=== PATIENT | male | born 1955 | race African-American/Black ===

== ENCOUNTER 2025-05-20 10:51 | Outpatient (CLI) | payer MEDICARE ==
[2025-05-20 12:15] LABS: #Basophils 0.03 10x3/uL (0.0-0.2); #Eosinophils 0.11 10x3/uL (0.0-0.7); #Monocytes 0.66 10x3/uL (0.11-0.59); #Neutrophils 2.46 10x3/uL (1.40-6.50); %Basophils 0.6 % (0.0-1.0); %Eosinophils 2.4 % (0.0-10.0); %Lymphocytes 30.1 % (21.0-51.0); %Monocytes 14.1 % (0.0-10.0); %Neutrophils 52.6 % (42.0-75.0); Hematocrit 41.0 % (42.0-52.0); Hemoglobin 13.8 g/dL (14.0-18.0); Mean Corpuscular Hemoglobin 30.3 pg (27.0-31.0); Mean Corpuscular Volume 90.1 fL (78.0-98.0); Platelet Count 229 10x3/uL (130-400); Red Blood Cell (RBC) Count 4.55 mill/uL (4.70-6.10); White Blood Cell (WBC) Count 4.68 10x3/uL (4.8-10.8)
[2025-05-20 12:32] LABS: ALT (SGPT) 26 U/L (Less than 45); AST (SGOT) 25 U/L (11-34); Albumin 3.8 g/dL (3.1-4.5); Alkaline Phosphatase 108 U/L (40-110); Anion Gap 12 mmol/L (10-20); BUN (Urea Nitrogen) 10 mg/dL (8.4-25.7); Bilirubin, Total 0.7 mg/dL (0.3-1.2); Calc. Creatinine Clearance 0 mL/min (70-130); Calcium 9.4 mg/dL (7.8-10.44); Carbon Dioxide 25 mmol/L (23-31); Chloride 104 mmol/L (98-107); Globulin 3.4 g/dL (2.4-3.5); Glucose 100 mg/dL (80-115); INR-International Normal Ratio 1.1; Potassium 3.7 mmol/L (3.5-5.1); Prothrombin Time 14.3 sec (12.0-14.7); Sodium 137 mmol/L (136-145)
== END 2025-05-20 10:52 | disposition home or self-care (01) ==
LOC: LABBT 10:51
PROVIDERS: ATTEND Student in an Organized Health Care Education/Training Program
DX: Z01.818 Encounter for other preprocedural examination (principal); M16.11 Unilateral primary osteoarthritis, right hip
CPT/HCPCS: 71046; 80053; 85025; 85610; 86850; 86900; 86901; 87081; 93005; 93010

== ENCOUNTER 2025-06-01 06:00 | Inpatient (IN) | payer MEDICARE ==
[2025-05-20 11:14] VITALS: BMI 28.8
[2025-06-01] MEDS ORDERED: Acetaminophen 500 MG TAB ONE (06:17)
[2025-06-01] MEDS ORDERED: Tranexamic Acid 1,000 MG/10 ML VIAL ONE ×2 (06:17→10:35)
[2025-06-01] MEDS ORDERED: Vancomycin HCl 1.5 GM VIAL ONE (06:17)
[2025-06-01] MEDS ORDERED: Gabapentin 300 MG CAP ONE (06:17)
[2025-06-01] MEDS ORDERED: CEFAZOLIN 2 GM VIAL ONE (06:58)
[2025-06-01] MEDS ORDERED: Lidocaine 1% PF 5 ML VIAL ONE (07:03)
[2025-06-01] MEDS ORDERED: Rocuronium Bromide 10 MG/ML (10ML VIAL) ONE (07:03)
[2025-06-01] MEDS ORDERED: fentaNYL PF 100 MCG/2 ML SYRINGE ONE (07:03)
[2025-06-01] MEDS ORDERED: PROPOFOL 200 MG/20 ML VIAL ONE (07:11)
[2025-06-01] MEDS ORDERED: Ondansetron PF 4 MG/2 ML Vial ONE (07:11)
[2025-06-01] MEDS ORDERED: Bupivacaine 0.25% HCL 30 ML VIAL ONE (07:46)
[2025-06-01] MEDS ORDERED: PHENYLEPHRINE-NS 100 MCG/ML 10 ML SYRINGE ONE (09:20)
[2025-06-01] MEDS ORDERED: SUGAMMADEX SODIUM 200 MG/2 ML VIAL ONE (10:00)
[2025-06-01] MEDS ORDERED: diphenhydrAMINE 25 MG CAP PO PRN (10:22)
[2025-06-01] MEDS ORDERED: Ondansetron PF 4 MG/2 ML Vial IVP PRN (10:22)
[2025-06-01] MEDS: Acetaminophen 500 MG TAB PO SCH (10:30)
[2025-06-01] MEDS ORDERED: HYDROmorphone 0.5 MG/0.5 ML SYRINGE ONE ×2 (10:44→11:18)
[2025-06-01] MEDS: Ketorolac Tromethamine 30 MG (1 mL) VIAL IVP SCH (14:53)
[2025-06-01] MEDS: Ferrous Gluconate 324 MG TAB PO SCH (21:15)
[2025-06-01] MEDS: Gabapentin 300 MG CAP PO SCH (21:17)
[2025-06-01] MEDS: Senokot S 8.6-50 MG TAB PO SCH (21:18)
[2025-06-01] MEDS: Methocarbamol 500 MG TAB PO PRN (21:24)
[2025-06-02 04:37] LABS: Hematocrit 31.6 % (42.0-52.0); Hemoglobin 10.6 g/dL (14.0-18.0); Mean Corpuscular Hemoglobin 30.2 pg (27.0-31.0); Mean Corpuscular Volume 90.0 fL (78.0-98.0); Platelet Count 196 10x3/uL (130-400); Red Blood Cell (RBC) Count 3.51 mill/uL (4.70-6.10); White Blood Cell (WBC) Count 8.44 10x3/uL (4.8-10.8)
[2025-06-02 04:53] LABS: Anion Gap 13 mmol/L (10-20); BUN (Urea Nitrogen) 17 mg/dL (8.4-25.7); Calc. Creatinine Clearance 81 mL/min (70-130); Calcium 8.3 mg/dL (7.8-10.44); Carbon Dioxide 23 mmol/L (23-31); Chloride 105 mmol/L (98-107); Glucose 171 mg/dL (80-115); Potassium 3.9 mmol/L (3.5-5.1); Sodium 137 mmol/L (136-145)
[2025-06-02] MEDS: Multivitamin W/ Minerals 1 TAB PO SCH (09:38)
[2025-06-02] MEDS: Aspirin 81 mg Enteric Coated Tablet PO SCH (09:39)
[2025-06-02] MEDS: oxyCODONE 5 MG TAB PO PRN (09:39)
[2025-06-03 05:26] LABS: Hematocrit 31.0 % (42.0-52.0); Hemoglobin 10.4 g/dL (14.0-18.0); Mean Corpuscular Hemoglobin 30.3 pg (27.0-31.0); Mean Corpuscular Volume 90.4 fL (78.0-98.0); Platelet Count 184 10x3/uL (130-400); Red Blood Cell (RBC) Count 3.43 mill/uL (4.70-6.10); White Blood Cell (WBC) Count 7.75 10x3/uL (4.8-10.8)
[2025-06-03 15:13] VITALS: BP 148/78; TEMP 98.8
== END 2025-06-03 16:00 | disposition home or self-care (01) | DRG 470 ==
LOC: SDC 06:00 → SURG A 11:46 → OBSVTOIN 06-02 15:10
PROVIDERS: ADMIT Student in an Organized Health Care Education/Training Program; ATTEND Student in an Organized Health Care Education/Training Program
PROC: 0SR903Z Replacement of Right Hip Joint with Ceramic Synthetic Substitute, Open Approach (ICD-10-PCS; principal; 2025-06-01)
DX: M16.11 Unilateral primary osteoarthritis, right hip (principal)
CPT/HCPCS: 36415; 72170; 80048; 85027; 86850; 86900; 86901; C1776; J0169; J0665; J1100; J1171; J1885; J2405; J2704; J3010; J3373